=== PATIENT | female | born 2000 | race Caucasian/White ===

== ENCOUNTER 2019-02-17 17:07 | Emergency (ER) | payer OTHER ==
[~2019-02-17] VITALS: Ht 154.9 cm; Wt 77.1 kg
[2019-02-17] MEDS ORDERED: TRAMADOL 50 MG50 MG PO (18:46)
[2019-02-17] MEDS ORDERED: METHOCARBAMOL500 M2 PO (18:46)
[2019-02-17] MEDS ORDERED: NAPROSYN500 MG PO (18:46)
[2019-02-17 19:44] VITALS: BP 117/90
== END 2019-02-17 19:47 | disposition home or self-care (01) ==
LOC: ER 17:07
DX: M43.6 Torticollis (principal)